=== PATIENT | female | born 1940 | race Caucasian/White ===

== ENCOUNTER 2019-12-14 12:36 | Outpatient (CLI) | payer MEDICARE, SELFPAY ==
--- NOTE | 2019-12-14 13:07 | ECHO_ITS ---
Patient Info Name: Lennie Salazar Age: 79 years : 1940 Gender: Female Ht: 62 in Wt: 160 lbs BSA: 1.81 m2 HR: 56 bpm BP: 182 / 96 mmHg Heart Rhythm: Sinus Rhythm Technical Quality: Good Exam Date: 12/14/2019 1:15 PM Exam Location: [facility] Pul[facility] Patient Status: Outpatient Admit Date: 12/14/2019 Staff Ordering Physician: Carter Noel PA-C Inventory Transcriber: Keenan Radford, ALLY, RT Attending Provider: Carter Noel PA-C Referring Physician: Bert VARGAS; Exam Type: CA echo doppler color flow Study Info Indications I49.8 - Other specified cardiac arrhythmias Complete two-dimensional, color flow and Doppler transthoracic echocardiogram is performed. Summary 1. Left ventricular systolic function are normal with no regional wall motion abnormalities with an estimated ejection fraction of 65-70%. There is mild concentric left ventricular hypertrophy present and grade 2 diastolic dysfunction. The global longitudinal strain is-18%, normal. 2. Right ventricular chamber dimension is mildly enlarged with normal systolic function. 3. Left atrial chamber dimension is mildly enlarged. 4. Right atrial chamber dimension is mildly enlarged. 5. There is mild mitral valve regurgitation. 6. There is trace tricuspid valve regurgitation. 7. Dilated inferior vena cava with >50% collapse upon inspiration consistent with elevated right atrial pressure, Empty. 8. Sinus bradycardia. Left Ventricle Left ventricular chamber dimension is normal. Left ventricular systolic function is normal, estimated at 65-70%. There is mildly increased left ventricular wall thickness. Left ventricular septal wall motion is normal. The left ventricular diastolic function is grade II diastolic dysfunction. Global longitudinal strain is normal at 18 %. Left ventricular systolic function are normal with no regional wall motion abnormalities with an estimated ejection fraction of 65-70%. There is mild concentric left ventricular hypertrophy present and grade 2 diastolic dysfunction. The global longitudinal strain is-18%, normal. Right Ventricle Right ventricular chamber dimension is mildly enlarged with normal systolic function. Right ventricular systolic function is normal. Left Atria Left atrial chamber dimension is mildly enlarged. Right Atria Right atrial chamber dimension is mildly enlarged. Aortic Valve The aortic valve is trileaflet. There is no aortic valve sclerosis. There is no aortic valve stenosis. There is no aortic valve regurgitation. Pulmonic Valve The pulmonic valve is normal. There is no pulmonic valve stenosis. There is no pulmonic regurgitation. Mitral Valve The mitral valve has normal leaflets. There is no mitral valve stenosis. There is mild mitral valve regurgitation. Tricuspid Valve The tricuspid valve leaflets are normal. There is no significant tricuspid valve stenosis. There is trace tricuspid valve regurgitation. No pulmonary hypertension, estimated pulmonary arterial systolic pressure is Empty. Pericardium/Pleural The pericardium appears normal. There is no pericardial effusion. Inferior Vena Cava Dilated inferior vena cava with >50% collapse upon inspiration consistent with elevated right atrial pressure, Empty. Aorta The aortic root size at the sinus of Valsalva is normal. The prox ascending aorta size is normal. Left Ventricular Outflow Tract Name
== END 2019-12-14 12:37 | disposition home or self-care (01) ==
PROVIDERS: PCP Family Medicine; Visit Provider Physician Assistant
DX: M79.89 Other specified soft tissue disorders (principal); I10 Essential (primary) hypertension; I34.0 Nonrheumatic mitral (valve) insufficiency; R00.1 Bradycardia, unspecified
CPT/HCPCS: 93306

== ENCOUNTER 2020-06-22 00:51 | Outpatient (CLI) | payer MEDICARE, SELFPAY ==
[2020-06-22 18:38] LABS: SARS-CoV-2 RNA PCR Negative
== END 2020-06-22 00:52 | disposition home or self-care (01) ==
LOC: ANHCOVIDDT 00:51
PROVIDERS: PCP Family Medicine; Visit Provider Internal Medicine Cardiovascular Disease
DX: Z01.812 Encounter for preprocedural laboratory examination (principal); Z20.822 Contact with and (suspected) exposure to COVID-19
CPT/HCPCS: C9803; U0003

== ENCOUNTER 2020-06-25 01:14 | Day surgery (SDC) | payer MEDICARE, SELFPAY ==
[2020-06-25] VITALS (9 sets, daily range): BP systolic 91–148; BP diastolic 57–97; PULSE 50–124; RESP 11–21; TEMP 36.8–37.3; O2SAT 93–97; BMI 29.9
--- NOTE | 2020-06-25 | ECG_ITS ---
Measurements Intervals [place] Rate: 56 P: 60 MO: 199 QRS: 1 QRSD: 106 T: 3 QT: 442 QTc: 429 Interpretive Statements SINUS BRADYCARDIA ATRIAL PREMATURE COMPLEX BORDERLINE T WAVE ABNORMALITY- INFERIOR LEADS BORDERLINE ECG Electronically Signed On 06-25-2020 10:39:12 [employer] by Jani Carter D.O.
--- NOTE | 2020-06-25 08:30 | ECG_ITS ---
Measurements Intervals [place] Rate: 133 P: [place]: 0 QRS: -2 QRSD: 104 T: 6 QT: 301 QTc: 449 Interpretive Statements ATRIAL FLUTTER/TACHYCARDIA WITH RAPID VENTRICULAR RESPONSE DELAYED PRECORDIAL R/S TRANSITION BORDERLINE T WAVE ABNORMALITY- INFERIOR LEADS ABNORMAL ECG Electronically Signed On 06-25-2020 9:17:27 [employer]OR[employer]IFTER by Jani Carter D.O.
[2020-06-25 09:46] LABS: Anion Gap 9 mmol/L (8-16); Blood Urea Nitrogen 32 mg/dL (7-17); Calcium 9.9 mg/dL (8.4-10.2); Carbon Dioxide 33 mmol/L (22-30); Chloride 97 mmol/L (98-107); Estimated CRCL calculation 29 ml/min; Estimated Glomerular Filt Rate 43; Glucose 129 mg/dL (65-105); Magnesium 1.7 mg/dL (1.6-2.3); Potassium 4.2 mmol/L (3.4-5.0); Sodium 139 mmol/L (137-145)
[2020-06-25] MEDS: MAGNESIUM SULF 2 GM/WATER 50ML 2 GM/50 ML BAG IVPB (10:11)
--- NOTE | 2020-06-25 10:17 | WPDMODSED ---
Moderate Sedation Note-Pt Data Patient Data Diagnosis: Atrial fibrillation Present Complaint: Atrial fibrillation Procedure to be performed/Plan: 1. Multiplanar transesophageal echocardiogram with color-flow pulse-wave Doppler 2. Moderate sedation 3. Electrical cardioversion 4. Agitated saline study Allergies Allergy/AdvReac Type Severity Reaction Status Date / Time Penicillins Allergy Mild HIVES Verified 04/13/20 09:49 Home Medications Medication Instructions Recorded Confirmed Type indapamide 2.5 mg tablet 2.5 mg PO DAILY #90 tablet 05/04/19 06/21/20 Rx magnesium 200 mg tablet 600 mg PO DAILY 08/24/19 06/21/20 History atenolol 50 mg tablet 50 mg PO BID #180 tablet 11/21/19 06/21/20 Rx pitavastatin calcium 4 mg tablet 4 mg PO DAILY #90 tablet 02/14/20 06/21/20 Rx icosapent ethyl 1 gram capsule 2 gm PO BID #120 cap 02/15/20 06/21/20 Rx diclofenac sodium 75 mg 75 mg PO BID #180 tablet 06/06/20 06/21/20 Rx tablet,delayed release aspirin [Aspirin Childrens] 81 mg PO DAILY 06/21/20 06/21/20 History cannabidiol 25 mg PO DAILY 06/21/20 06/21/20 History diphenhydramine-acetaminophen 1 tablet PO HS PRN 06/21/20 06/21/20 History [Tylenol PM Extra Strength] lisinopril 10 mg PO DAILY 06/21/20 06/21/20 History metformin 1,000 mg PO DAILY 06/21/20 06/21/20 History metformin 500 mg PO HS 06/21/20 06/21/20 History rqvydphfopie-arq-penr-FA-vit K 1 tablet PO DAILY 06/21/20 06/21/20 History [Adults Multivitamin] rivaroxaban [Xarelto] 20 mg PO DAILY 06/21/20 06/21/20 History Current Medications: Active Medications Sodium Chloride (Normal Saline Iv) 1,000 mls @ 30 mls/hr IV CONT .Q24H MEL Magnesium Sulfate (Magnesium Sulf 2 Gm/Water 50ml) 2 gm in 50 mls @ 50 mls/hr IVPB ONCE ONE Stop: 06/25/20 11:08 Last Admin: 06/25/20 10:11 Dose: 50 mls/hr Documented by: Sedation/Anesthesia: No previous sedation/anesthesia problems (including family history). [facility] Past Medical History Medical History History of polycystic ovaries Hx of nephrolithotomy with removal of calculi Surgical History Surgical History History of knee replacement Hx of appendectomy Hx of cholecystectomy Family History Family History Mother Diabetes mellitus Family history of mental disorder Depression Family history of dementia Grandparent Diabetes mellitus Acute myocardial infarction Sibling Patient's brother is in good health Father Family history of cardiovascular disease, Onset Age: 80 Cerebrovascular accident, Onset Age: 80 Social History Social History Smoking status: Former smoker Alcohol intake: never Gender identity (if verbalized by the patient): Female Spiritual care concerns: No Mod Sed Physical Exam Physical Exam Pre Procedural Exam: Normal: Appearance, Eyes, Ears, Nose, Neck, Throat, Airway, Lungs, Heart Size, Neuro Exam, Abdomen, Extremities and Skin and Variation: Heart Rate (Tachycardic) and Heart Rhythm (Irregular irregular) Hours since solid foods: 12 Hours since liquid intake: 12 Internal Medicine - PN: Obj Da Vital Signs Vital Signs: Vital Signs - 24 hr 06/25/20 09:23 Temperature 37.3 C Pulse Rate 124 H Respiratory Rate 21 H Blood Pressure 127/96 H Pulse Oximetry 97 Meds/Results Medications: Active Medications Generic Name Dose Route Start Last Admin Trade Name Enocq PRN Reason Stop Dose Admin Sodium Chloride 1,000 mls @ 30 mls/hr 06/25/20 07:50 Normal Saline Iv IV CONT .Q24H MEL Magnesium Sulfate 2 gm in 50 mls @ 50 mls/hr 06/25/20 10:09 06/25/20 10:11 Magnesium Sulf 2 Gm/Water 50ml IVPB 06/25/20 11:08 50 mls/hr ONCE ONE Administration Labs CBC & Chem 7: 06/25/20 09:17 06/25/20 09:17 Labs: Labor
--- NOTE | 2020-06-25 10:42 | P.PCNTEECA_ITS ---
JANINA with Cardioversion Date of procedure: 06/25/20 Procedure Type: 1. Multiplanar transesophageal echocardiography with color flow and pulse wave Doppler 2. Moderate sedation 3. Electrical cardioversion Diagnosis: Atrial fibrillation Indications: Atrial fibrillation Description of Procedure: After discussing the risks, benefits alternatives of the procedure the patient agreeable via verbal and written informed consent. Risks discussed included esophageal rupture perforation, bleeding, pain, infection, sore throat, skin irritation or burn from the pads, shocking into more problematic heart rhythm, stroke, . After consent was signed and time-out was taken the procedure started. 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 Procedure start time 10:22 a.m. Procedure stop time 10:30 a.m. A total of 3 mg of Versed and 50 mcg of fentanyl were given in divided dosages. Hurricaine spray to hypopharynx x2 for topical anesthetic Medications were administered and patient was monitored by Sasha Ruby RN Complications: None Blood loss: None Sedation: As above Findings: Normal left ventricular size and function with ejection fraction around 60-65%. Moderate left atrial enlargement. Mild right atrial enlargement. Normal right ventricular size and function. Tricuspid valve is normal without significant tricuspid regurgitation. Pulmonic valve is normal without significant pulmonic insufficiency. The aortic valve is mildly sclerotic, trileaflet with minimal aortic insufficiency. The mitral valve is normal in appearance with [id number]-ag-qwwnpssl mitral regurgitation. The left at rial appendage is well visualized. There is no thrombus or mass noted. Pulse- wave velocities are of around 50 centimeters/second. No pericardial effusion. Aortic root measured at 2.9 cm. Electric cardioversion: Successful caodaism of sinus rhythm following 150 joules of biphasic synchronized energy from atrial fibrillation Conclusion: 1. Normal left ventricular size and function 2. Biatrial enlargement 3. Rcex-gf-igabdfqn mitral regurgitation 4. No left atrial appendage thrombus 5. Successful caodaism of sinus rhythm using 150 joules of synchronized biphasic energy 6. Moderate sedation
--- NOTE | 2020-06-25 11:43 | SUR.PHASEII ---
1145 Discharge instructions reviewed with patient, questions answered and she verbalized understanding. IV d/c'd, cath intact, pressure applied, pt transported to [facility] via where her drove her home in a private vehicle.
== END 2020-06-25 11:45 | disposition home or self-care (01) ==
PROVIDERS: PCP Family Medicine; Visit Provider Internal Medicine Cardiovascular Disease
PROC: (CPT 93312; principal; 2020-06-25 10:00)
PROC: 5A2204Z Restoration of Cardiac Rhythm, Single (ICD-10-PCS; 2020-06-25 10:00)
DX: I48.91 Unspecified atrial fibrillation (principal); I34.0 Nonrheumatic mitral (valve) insufficiency; I10 Essential (primary) hypertension; E11.9 Type 2 diabetes mellitus without complications; E78.5 Hyperlipidemia, unspecified; Z87.891 Personal history of nicotine dependence; Z79.82 Long term (current) use of aspirin; Z79.84 Long term (current) use of oral hypoglycemic drugs; Z79.01 Long term (current) use of anticoagulants
CPT/HCPCS: 36415; 80048; 83735; 92960; 93005; 93312; 93320; 93325; J2250; J3010; J3475; J7040

== ENCOUNTER 2020-10-02 10:09 | Outpatient (CLI) | payer MEDICARE, SELFPAY ==
--- NOTE | ~2020-10-02 | MM_ITS ---
EXAMINATION: MM screening luma BI w skylar HISTORY: Screening TECHNIQUE: Craniocaudal and mediolateral oblique 3-D tomosynthesis images were obtained and synthetic 2-D images were generated. CAD analysis was submitted and interpreted. COMPARISON: Comparison to multiple prior studies sequentially, with oldest reviewed study dated 07/15. BREAST PARENCHYMAL COMPOSITION: There are scattered areas of fibroglandular density. FINDINGS: Stable benign-appearing bilateral breast calcifications. The right breast is stable. There is a developing focal asymmetry in the upper outer quadrant of the left breast. IMPRESSION: 1. Focal asymmetry upper outer quadrant of the left breast. 2. Additional spot compression and mediolateral views with possible follow-up breast ultrasound recom mended. BI-RADS Category 0: Incomplete: Needs additional imaging evaluation. Reviewed, dictated and finalized at location A. IMPRESSION: 1. Focal asymmetry upper outer quadrant of the left breast. 2. Additional spot compression and mediolateral views with possible follow-up b reast ultrasound recommended. BI-RADS Category 0: Incomplete: Needs additional imaging evaluation.
== END 2020-10-02 10:10 | disposition home or self-care (01) ==
LOC: ANHIMG 10:15
PROVIDERS: PCP Family Medicine; Visit Provider Obstetrics & Gynecology
DX: Z12.31 Encounter for screening mammogram for malignant neoplasm of breast (principal); R92.8 Other abnormal and inconclusive findings on diagnostic imaging of breast
CPT/HCPCS: 77063; 77067

== ENCOUNTER 2020-10-23 13:22 | Outpatient (CLI) | payer MEDICARE, SELFPAY ==
--- NOTE | ~2020-10-23 | MMUS_ITS ---
EXAMINATION: MM diagnostic mammo unilat LT, US breast LT limited HISTORY: Follow-up left breast asymmetry TECHNIQUE: Additional 3-D tomosynthesis images of the left breast were performed and synthetic 2-D im ages were generated. CAD analysis was submitted and interpreted. High resolution Limited left breast ultrasound was performed. COMPARISON: Comparison to multiple prior studies sequentially, with oldest reviewed study dated 07/15. BREAST PARENCHYMAL COMPOSITION: Breast composed of scattered areas of fibroglandular density. FINDINGS: MAMMOGRAPHIC FINDINGS: Left breast asymmetry is less apparent with spot compression and mediolateral views, compatible with superimposed fibroglandular tissue. There is benign calcifications of the left breast. ULTRASOUND: Limited left breast ultrasound: Normal heterogeneous echotexture without focal solid or cystic mass. IMPRESSION: 1. No evidence for malignancy in the left breast. 2. Routine yearly screening mammogram and regular clinical breast examination are recommended. BI-RADS Category 2: Benign finding(s). Reviewed, dictated and finalized at location A. IMPRESSION: 1. No evidence for malignancy in the left breast. 2. Routine yearly screening mammogram and regular clinical breast examination a re recommended. BI-RADS Category 2: Benign finding(s).
== END 2020-10-23 13:23 | disposition home or self-care (01) ==
PROVIDERS: PCP Family Medicine; Visit Provider Obstetrics & Gynecology
DX: R92.8 Other abnormal and inconclusive findings on diagnostic imaging of breast (principal)
CPT/HCPCS: 76642; 77065

== ENCOUNTER 2021-01-30 13:17 | Outpatient (CLI) | payer MEDICARE, SELFPAY ==
--- NOTE | ~2021-01-30 | CT_ITS ---
EXAMINATION: CT abdomen pelvis wo/w con DATE: 01/30/2021 14:31 INDICATION: Gross hematuria TECHNIQUE: Computed tomography (CT) of the abdomen and pelvis was performed without intravenous contr ast. CT of the abdomen and pelvis was then performed with a total of 130 mL Omnipaque 350 intravenous contrast using a double-bolus technique for simultaneous opacification of the renal parenchyma and r enal collecting system. The dose-length product (DLP) was 1718.84 mGy-cm. Automated exposure control and iterative reconstruction technique were employed. COMPARISON: None FINDINGS: There are groundglass opacities of the visualized lung bases. Cardiomegaly is noted. There is calcified coronary artery atherosclerosis. The gallbladder is surgically absent. Punctate calcific ations in an otherwise normal spleen likely represent healed granulomatous disease. The liver, pancre as, and left adrenal gland are normal. Calcifications in the right adrenal gland are consistent with prior infection or hemorrhage. Cysts of the kidneys measure up to 7 mm on the right. No suspicious re nal or urothelial lesion is identified. No stones are identified in the kidneys, ureters, or bladder. There is no hydronephrosis or hydroureter. There is calcified atherosclerosis of the aorta and many of the other arteries. No pathologically enlarged abdominal or pelvic lymph nodes are identified. The re is no free intraperitoneal gas or evidence of bowel obstruction. There is colonic diverticulosis. Minimal fat stranding is seen adjacent to the sigmoid colon. There is severe lumbar spondylosis. IMPRESSION: 1. No CT correlate for the patient's symptoms. 2. Diverticulosis with possible mild fat stranding near the sigmoid colon. Recommend clinical correla tion for left lower quadrant tenderness and if present, finding could reflect mild uncomplicated dive rticulitis. 3. Groundglass opacities of the visualized lung bases which could reflect atelectasis, pneumonia, or pulmonary edema. Reviewed, dictated and finalized at location B. IMPRESSION: 1. No CT correlate for the patient's symptoms. 2. Diverticulosis with possible mild fat stranding near the sigmoid colon. Edy mmend clinical correlation for left lower quadrant tenderness and if present, f inding could reflect mild uncomplicated diverticulitis. 3. Groundglass opacities of the visualized lung bases which could reflect atele ctasis, pneumonia, or pulmonary edema.
--- NOTE | ~2021-01-30 | XR_ITS ---
EXAMINATION: XR abdomen/kub 1V INDICATION: Gross hematuria TECHNIQUE: Supine views of the abdomen were obtained on 2 radiographs. COMPARISON: None FINDINGS: No urolithiasis is identified. The bowel gas pattern is normal. Cholecystectomy clips are n oted in the right upper quadrant. There is severe lumbar spondylosis. 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 IMPRESSION: 1. No radiographic correlate for the patient's symptoms. Reviewed, dictated and finalized at location B.
[2021-01-30 14:05] LABS: Estimated Glomerular Filt Rate 31
== END 2021-01-30 13:18 | disposition home or self-care (01) ==
LOC: ANHIMG 13:18
PROVIDERS: PCP Family Medicine; Visit Provider Nurse Practitioner Adult Health
DX: R31.0 Gross hematuria (principal); K57.90 Diverticulosis of intestine, part unspecified, without perforation or abscess without bleeding; R91.8 Other nonspecific abnormal finding of lung field
CPT/HCPCS: 74018; 74178; Q9967

== ENCOUNTER 2021-09-24 14:37 | Outpatient (CLI) | payer MEDICARE, SELFPAY ==
--- NOTE | ~2021-09-24 | MR_ITS ---
EXAMINATION: MR brain/brain stem wo con EXAM DATE: 09/24/2021 15:28 INDICATION: R42 - Dizziness and giddiness. TECHNIQUE: Magnetic resonance imaging (MRI) of the brain/brain stem obtained without contrast. Fred al T1, axial diffusion, gradient echo (T2*), T1, T2, FLAIR sequences obtained. There is no prior st udy for comparison. FINDINGS: There are no areas of restricted diffusion to suggest acute infarction. There is no acute hemorrhage seen on the T2*, a hemosiderin sensitive sequence. No intraparenchymal brain mass. The ve ntricles are normal in size. There are no extra-axial collections. Flow voids are seen in the cereb ral arteries on the T2-weighted sequences consistent with their expected patency. The orbits are unr emarkable. Soft tissue is unremarkable. IMPRESSION: Unremarkable brain MRI examination. Reviewed, dictated and finalized at location A.
== END 2021-09-24 14:38 | disposition home or self-care (01) ==
LOC: ANHIMG 14:43
PROVIDERS: PCP Family Medicine; Visit Provider Family Medicine
DX: R42 Dizziness and giddiness (principal)
CPT/HCPCS: 70551

== ENCOUNTER 2021-12-11 10:34 | Outpatient (CLI) | payer MEDICARE, SELFPAY ==
--- NOTE | ~2021-12-11 | MM_ITS ---
EXAMINATION: MM screening luma BI w skylar HISTORY: Screening mammogram TECHNIQUE: Craniocaudal and mediolateral oblique 3-D tomosynthesis images were obtained and synthetic 2-D images were generated. CAD analysis was submitted and interpreted. COMPARISON: 10/2020 diagnostic left mammogram and limited left breast ultrasound 10/02/2020, bilateral screening mammogram examinations BREAST PARENCHYMAL COMPOSITION: There are scattered areas of fibroglandular density. FINDINGS: Numerous benign secretory type calcifications. There is no evidence of suspicious mass, jaquan cification, or architectural distortion to suggest malignancy in either breast. There has been no candis picious interval change. IMPRESSION: 1. No mammographic evidence of malignancy. 2. Recommend routine screening mammography in one year. BI-RADS Category 2: Benign Reviewed, dictated and finalized at location A.
== END 2021-12-11 10:35 | disposition home or self-care (01) ==
PROVIDERS: PCP Family Medicine; Visit Provider Obstetrics & Gynecology
DX: Z12.31 Encounter for screening mammogram for malignant neoplasm of breast (principal)
CPT/HCPCS: 77063; 77067

== ENCOUNTER → 2022-09-18 09:42 | Outpatient (CLI) | payer MEDICARE, SELFPAY ==
--- NOTE | ~2022-09-18 | CT_ITS ---
EXAMINATION: CT sinus wo con DATE: 09/18/2022 12:18 INDICATION: Bilateral continuous maxillary sinus pressure TECHNIQUE: Computed tomography (CT) of the paranasal sinuses was performed without contrast. Iterativ e reconstruction technique was employed. Exam dose: 384.14 mGy-cm total exam DLP. COMPARISON: None FINDINGS: There is rightward bowing of the upper nasal septum. The nasal turbinates are moderately pr ominent but symmetric in size. The ostiomeatal units are patent. There is a small mucus retention cyst in the anterolateral aspect of the right sphenoid sinus. The paranasal sinuses and mastoid air cells are otherwise normally developed and aerated. The ostiomeatal units are patent bilaterally. IMPRESSION: Small mucus retention cyst of right sphenoid sinus; otherwise negative paranasal sinuses , ostiomeatal units and mastoid air cells Reviewed, dictated and finalized at Location A. Reviewed, dictated and finalized at location L. IMPRESSION: Small mucus retention cyst of right sphenoid sinus; otherwise nega tive paranasal sinuses, ostiomeatal units and mastoid air cells
== END ==
PROVIDERS: PCP Family Medicine; Visit Provider Otolaryngology
DX: J32.0 Chronic maxillary sinusitis (principal)
CPT/HCPCS: 70486

== ENCOUNTER 2022-10-15 14:45 | Outpatient (CLI) | payer MEDICARE, SELFPAY ==
--- NOTE | ~2022-10-15 | XR_ITS ---
Cervical Spine: AP, lateral, open-mouth views Clinical History: Pain Findings: The normal lordotic curve is maintained. The vertebral bodies and posterior elements appea r intact. There are prominent anterior marginal osteophytes extending from C4 through C7. There is fa cet arthropathy, most prominent at C3-C4 bilaterally. The intervertebral disc spaces are well maintai stephane. Pre-vertebral soft tissues are unremarkable. Impression: Mild degenerative changes, as above. No fracture or subluxation. Reviewed, dictated and finalized at location M. Impression: Mild degenerative changes, as above. No fracture or subluxation.
== END 2022-10-15 14:46 | disposition home or self-care (01) ==
PROVIDERS: PCP Family Medicine; Visit Provider Family Medicine
DX: M47.812 Spondylosis without myelopathy or radiculopathy, cervical region (principal)
CPT/HCPCS: 72050

== ENCOUNTER 2022-11-03 10:44 | Emergency (ER) | payer MEDICARE, SELFPAY ==
--- NOTE | ~2022-11-03 | XR_ITS ---
XR hip LT 2V w AP pelvis 11/03/2022 11:25 Indication: Left hip pain for 3 weeks Procedure: AP pelvis and 2 views left hip Comparison: No prior studies for comparison. Findings: Pelvic rings are intact. There is mild osteoarthritis of the hips. There is a lower lumbar spondylosis. No acute fracture or traumatic malalignment. Impression: 1: No acute bone or joint abnormality. Reviewed, dictated and finalized at location B. Impression: 1: No acute bone or joint abnormality.
[2022-11-03 10:56] VITALS: BP 154/99; PULSE 60; RESP 16; TEMP 36.4; O2SAT 99
--- NOTE | 2022-11-03 11:20 | PC.NURSE ---
pt c/o l hip pain. states she has hx of dislocation and since the age of 14 she has had occasional dislocations but was able to put in back in. states over the past couple of days she has had problems with her positional vertigo and she twisted hip while trying to get up and has had pain since. states saw the chiropractor and pmd and they told her to come to er for eval and xray to make sure it isn't dislocated. no deformity noted.
--- NOTE | 2022-11-03 11:45 | ED.LOWEXIN ---
HPI - Extremity Injury (Lower) General Chief Complaint: Extremity Injury, Lower Stated Complaint: sent by PCP for xray of L hip Time Seen by Provider: 11/03/22 11:01 History of Present Illness HPI Narrative: 82-year-old female here for evaluation of acute on chronic left hip pain. Patient states her hip has been hurting her since she was 14 years old when she was in an accident falling off of a horse. She has since had intermittent problems in the hip and has been seeing a chiropractor with transient relief of her pain. Patient states that she saw her chiropractor 3 days ago did have transient relief but her pain returned today. She has been able to walk but just states it is painful. Has been taking Tylenol without relief of her symptoms. No fevers, chills, nausea, vomiting. Related Data Home Medications Medication Instructions Recorded Confirmed magnesium 200 mg tablet 600 mg PO DAILY 08/24/19 11/03/22 cannabidiol 100 mg/mL oral solution 25 mg PO DAILY 06/21/20 11/03/22 diphenhydramine 25 1 tablet PO HS PRN Insomnia 06/21/20 11/03/22 mg-acetaminophen 500 mg tablet (Tylenol PM Extra Strength) multivit with minerals-iron 18 1 tablet PO DAILY 06/21/20 11/03/22 mg-folic ac 400 mcg-vit K 25 mcg tablet (Adults Multivitamin) rivaroxaban 20 mg tablet (Xarelto) 15 mg PO DAILY 03/04/21 11/03/22 Allergies Allergy/AdvReac Type Severity Reaction Status Date / Time Penicillins Allergy Mild HIVES Verified 11/03/22 11:00 Review of Systems Review of Systems: Gen: Denies fevers or chills Eyes: Denies eye pain or visual change ENT: Denies congestion Respiratory: Denies shortness of breath or cough CV: Denies chest pain or palpitations GI: Denies abdominal pain nausea, emesis or diarrhea denies burning, urgency, frequency or hematuria Musculoskeletal: Reports left hip pain Neuro: Denies numbness, tingling, weakness or focal weakness Skin: Denies rash Except as documented, all other systems reviewed and negative PMFSH Past Medical History Medical History (Updated 11/03/22 @ 13:11 by Isis Alejo PA-C) History of polycystic ovaries Hx of nephrolithotomy with removal of calculi Surgical History Surgical History History of knee replacement Hx of appendectomy Hx of cholecystectomy Family History Family History Mother Diabetes mellitus Family history of mental disorder Depression Family history of dementia Grandparent Diabetes mellitus Acute myocardial infarction Sibling Patient's brother is in good health Father Family history of cardiovascular disease, Onset Age: 80 Cerebrovascular accident, Onset Age: 80 Social History Social History Smoking status: Never smoker Alcohol intake: never Lack of Transportation: No Lack of Food: Never True Current Housing: I Have Housing Concerned About Future Housing: No Difficulty Paying Gas/Electric Bills: No Difficulty Paying for Meds: No Currently Unemployed: No Education: High School Diploma/GED Difficulty w/ Childcare or Family Care: No Gender identity (if verbalized by the patient): Female Spiritual care concerns: No Exam Narrative: APPEARANCE: No acute distress, nontoxic, resting in bed EYES: EOMI HEENT: Normocephalic, atraumatic, OMM RESPIRATORY: No respiratory distress Clear to auscultation bilaterally with no rhonchi wheezing or rales. CARDIOVASCULAR: 2+ DP and PT pulses bilaterally. Regular rate and rhythm without murmurs rubs or gallops. ABDOMINAL: Soft, nontender, nondistended, no rebound or guarding MUSCULOSKELETAL: There is tenderness to palpation along the left hip. She has pain with flexion of the hip, external and internal rotation. There is also some pain in the hip with flexion at the knee. There is no warmth or red
[2022-11-03] MEDS: LIDOCAINE 5% PATCH 1 PATCH TRANSDERM (12:08)
[2022-11-03] MEDS: MELOXICAM 7.5 MG TABLET PO (12:32)
== END 2022-11-03 13:26 | disposition home or self-care (01) ==
PROVIDERS: Emergency Provider Physician Assistant; PCP Family Medicine
DX: M16.12 Unilateral primary osteoarthritis, left hip (principal)
CPT/HCPCS: 73502; 99283; A9270

== ENCOUNTER 2023-05-21 02:51 | Day surgery (SDC) | payer MEDICARE, SELFPAY ==
[2023-05-20 15:32] VITALS: BMI 32.9
[2023-05-21] VITALS (9 sets, daily range): BP systolic 113–156; BP diastolic 49–108; PULSE 61–137; RESP 12–24; O2SAT 96–100; BMI 35.2
--- NOTE | 2023-05-21 09:00 | ECG_ITS ---
Measurements Intervals [place] Rate: 61 P: 53 AR: 196 QRS: 7 QRSD: 94 T: 2 QT: 428 QTc: 433 Interpretive Statements SINUS RHYTHM SUPRAVENTRICULAR TRIGEMINY BORDERLINE T WAVE ABNORMALITY- INFERIOR LEADS ABNORMAL ECG COMPARED TO ECG 05/21/2023 09:13:17 SINUS RHYTHM NOW PRESENT Electronically Signed On 05-21-2023 11:25:20 DEDICATED DRIVER by Jani Carter D.O.
[2023-05-21 09:40] LABS: Anion Gap 11 mmol/L (8-16); Blood Urea Nitrogen 45 mg/dL (7-17); Calcium 9.1 mg/dL (8.4-10.2); Carbon Dioxide 23 mmol/L (22-30); Chloride 103 mmol/L (98-107); Estimated CRCL calculation 22 ml/min; Estimated Glomerular Filt Rate 31; Glucose 138 mg/dL (65-110); Magnesium 2.1 mg/dL (1.6-2.3); Potassium 4.7 mmol/L (3.4-5.0); Sodium 137 mmol/L (137-145)
--- NOTE | 2023-05-21 10:45 | ECG_ITS ---
Measurements Intervals [place] Rate: 125 P: UT: 0 QRS: 1 QRSD: 90 T: 7 QT: 315 QTc: 455 Interpretive Statements ATRIAL FIBRILLATION WITH RAPID VENTRICULAR RESPONSE DELAYED PRECORDIAL R/S TRANSITION BORDERLINE T WAVE ABNORMALITY- INFERIOR LEADS BASELINE ARTIFACT- I, II, III, AVL, AVF ABNORMAL ECG COMPARED TO ECG 06/25/2020 10:37:54 ATRIAL FIBRILLATION NOW PRESENT Electronically Signed On 05-21-2023 9:16:28 PALEOLOGIST by Jani Carter D.O.
--- NOTE | 2023-05-21 10:45 | WPDHPUPDATE1 ---
History and Physical Update Update Date/Time: 05/21/23 10:45 History and Physical has been reviewed, including an updated exam of the patient. There are NO changes in the patient's condition. Risks, benefits, and alternatives have been discussed and questions answered. Patient agrees to proceed with procedure.
--- NOTE | 2023-05-21 11:05 | WPDMODSED ---
Moderate Sedation Note-Pt Data Patient Data Diagnosis: Atrial fibrillation with rapid ventricular response Present Complaint: Shortness of breath History and physical update: Patient is a very pleasant 83-year-old female with past medical history significant for paroxysmal atrial fibrillation, hypertension, type 2 diabetes mellitus, hyperlipidemia who was in her usual state of health when approximately 1-2 weeks ago she developed worsening shortness of breath with tachycardia and recurrence of atrial fibrillation with RVR. She was maintained on atenolol 50 mg twice daily and she has been anticoagulated with Xarelto 15 mg at bedtime without any interruption for at least 4 weeks. She is subsequently referred for elective cardioversion without the need for JANINA guidance. Patient is followed by Dr. Lagunas who recommended cardioversion to restore sinus rhythm. Impression: Paroxysmal atrial fibrillation with sustained recurrence with RVR Hypertension Diabetes mellitus Hyperlipidemia Recommendations: Elective cardioversion to restore sinus rhythm. Procedure to be performed/Plan: Elective electrical cardioversion Allergies Allergy/AdvReac Type Severity Reaction Status Date / Time Penicillins Allergy Mild HIVES Verified 05/20/23 15:12 Home Medications Medication Instructions Recorded Confirmed Type cannabidiol 100 mg/mL oral solution 25 mg PO DAILY 06/21/20 05/20/23 History multivit with minerals-iron 18 1 tablet PO DAILY 06/21/20 05/20/23 History mg-folic ac 400 mcg-vit K 25 mcg tablet (Adults Multivitamin) pitavastatin calcium 4 mg tablet 4 mg PO DAILY #90 tabs 04/29/22 05/21/23 Rx metformin 500 mg tablet 500 mg PO BID #180 tabs 12/25/22 05/21/23 Rx atenolol 50 mg tablet 50 mg PO BID 05/20/23 05/21/23 History cholecalciferol (vitamin D3) 50 50 mcg PO DAILY 05/20/23 05/20/23 History mcg (2,000 unit) capsule cyanocobalamin (vitamin B-12) 5,000 mcg sublingual DAILY 05/20/23 05/20/23 History 5,000 mcg sublingual tablet diclofenac sodium 75 mg 75 mg PO BID 05/20/23 05/21/23 History tablet,delayed release diphenhydramine 25 2 tablet PO HS PRN Sleep 05/20/23 05/20/23 History mg-acetaminophen 500 mg tablet (Acetaminophen PM) famotidine 10 mg tablet 10 mg PO BID 05/20/23 05/20/23 History icosapent ethyl 1 gram capsule 2 g PO BID 05/20/23 05/21/23 History (Vascepa) indapamide 2.5 mg tablet 2.5 mg PO DAILY 05/20/23 05/21/23 History lisinopril 40 mg tablet 10 mg PO DAILY 05/20/23 05/21/23 History magnesium oxide 400 mg PO DAILY PRN Constipation 05/20/23 05/20/23 History rivaroxaban 15 mg tablet (Xarelto) 15 mg PO DAILY 05/20/23 05/20/23 History Current Medications: Active Medications Sodium Chloride (Normal Saline Iv) 1,000 mls @ 30 mls/hr IV CONT .Q24H MEL Sedation/Anesthesia: No previous sedation/anesthesia problems (including family history). [facility] Past Medical History Medical History Atrial fibrillation with RVR CARDIOVERSION june, Bradycardia Essential (primary) hypertension History of polycystic ovaries Hx of nephrolithotomy with removal of calculi Type 2 diabetes mellitus without complications Surgical History Surgical History History of knee replacement Hx of appendectomy Hx of cholecystectomy Family History Family History Mother Diabetes mellitus Family history of mental disorder Depression Family history of dementia Grandparent Diabetes mellitus Acute myocardial infarction Sibling Patient's brother is in good health Father Family history of cardiovascular disease, Onset Age: 80 Cerebrovascular accident, Onset Age: 80 Social History Social History Smoking packs per day: 0 Smoking cigarettes per day: 0.0 Y
--- NOTE | 2023-05-21 11:10 | P.PCNCVR_ITS ---
Cardioversion Cardioversion Date of procedure: 05/21/23 Procedure: Elective electrical cardioversion Pre-op diagnosis: Atrial fibrillation with rapid ventricular response Post-op diagnosis: Same Indications: Symptomatic atrial fibrillation with rapid ventricular response Description of procedure: Brief history present illness: Patient is a pleasant 83 year female followed by Dr. Lagunas with a past medical history significant paroxysmal atrial fibrillation, hypertension, diabetes mellitus, hyperlipidemia with recurrence of AFib highly symptomatic with progressive fatigue and shortness of breath referred for elective electrical cardioversion in attempt to restore sinus rhythm. She is adamant she has not missed a single dose of his Xarelto and has been maintained on systemic anticoagulation for greater than 4 weeks without interruption. Procedure in detail: After verbal and written informed consent was obtained the patient risks, benefits, and alternatives explained in detail the patient agreed to proceed with the plan of care as outlined above. Patient was evaluated at bedside in the [facility] procedure room. On examination, neck was supple with normal range of motion, no restrictions to opening of the oral cavity, jaw angle and posterior hypopharynx was clear. Lungs were clear to auscultation. Patient was placed in appropriate 30 to 45 degree angle in a supine position. Patient was monitored throughout the study with telemetry, oxygen saturation, end-tidal CO2 monitoring, blood pressure, heart rate, and respirations. Anterior and posterior defibrillator pads placed in the appropriate positions. After confirmation of adequate sedation electrical cardioversion was carried out without complication. Patient tolerated the procedure well without difficulty. Sedation: Moderate Sedation/Anesthesia administration: Patient denied previous intolerance or complications with anesthesia/sedation. Please see sedation note for documentation of the pre-procedure physical examination. A total of 2mg intravenous Versed and a total of 75mcg intravenous Fentanyl in multiple divided doses was utilized for moderate sedation. Sedation start time was 1052 and end time was 1104 for a total of 12 minutes [id number] intra-procedure time. Sedation was administered by a qualified observer Hammad Adrian RN under my supervision with intra-procedure [id number] observation and management throughout the entirety of the procedure. There were no other issues or complications and patient tolerated the procedure well and sedation protocol well and I was present for the entirety. Findings: Elective electrical cardioversion: After confirmation of adequate sedation and persistence of atrial fibrillation, 200 joules synched biphasic energy x1 was delivered with immediate restorationism of sinus rhythm. Twelve lead EKG was obtained postprocedure confirming sinus rhythm. Complications: None Conclusion: Successful restorationism of sinus rhythm status post 200 joules synched biphasic energy x1.
== END 2023-05-21 12:27 | disposition home or self-care (01) ==
PROVIDERS: PCP Family Medicine; Visit Provider Internal Medicine Cardiovascular Disease
PROC: 5A2204Z Restoration of Cardiac Rhythm, Single (ICD-10-PCS; principal; 2023-05-21 10:30)
DX: I48.91 Unspecified atrial fibrillation (principal); E78.5 Hyperlipidemia, unspecified; Z79.01 Long term (current) use of anticoagulants
CPT/HCPCS: 36415; 80048; 83735; 92960; J2250; J3010; J7030

== ENCOUNTER 2023-11-12 02:47 | Day surgery (SDC) | payer MEDICARE, SELFPAY ==
[2023-11-11 13:49] VITALS: BMI 34.0
--- NOTE | 2023-11-12 08:59 | ECG_ITS ---
SEE SCANNED COPY FOR CONFIRMED REPORT MTDD
[2023-11-12 09:03] VITALS: BP 138/89; PULSE 103; RESP 14; TEMP 37.2; O2SAT 99
[2023-11-12 09:38] LABS: Anion Gap 12 mmol/L (4-12); Blood Urea Nitrogen 28 mg/dL (7-17); Calcium 8.9 mg/dL (8.4-10.2); Carbon Dioxide 23 mmol/L (22-30); Chloride 103 mmol/L (98-107); Estimated CRCL calculation 23 ml/min; Estimated Glomerular Filt Rate 33; Glucose 114 mg/dL (65-110); Magnesium 1.9 mg/dL (1.6-2.3); Potassium 4.5 mmol/L (3.4-5.0); Sodium 138 mmol/L (137-145)
[2023-11-12 10:24] VITALS: BP 137/95; PULSE 104; RESP 18; O2SAT 100
--- NOTE | 2023-11-12 10:29 | WPDHPUPDATE1 ---
History and Physical Update Update Date/Time: 11/12/23 10:29 History and Physical has been reviewed, including an updated exam of the patient. There are NO changes in the patient's condition. Risks, benefits, and alternatives have been discussed and questions answered. Patient agrees to proceed with procedure.
--- NOTE | 2023-11-12 10:29 | WPDMODSED ---
Moderate Sedation Note-Pt Data Patient Data Diagnosis: Atrial fibrillation Present Complaint: Atrial fibrillation Procedure to be performed/Plan: Synchronized electrical cardioversion Allergies Allergy/AdvReac Type Severity Reaction Status Date / Time Penicillins Allergy Mild HIVES Verified 09/17/23 09:10 Home Medications Medication Instructions Recorded Confirmed Type cannabidiol 100 mg/mL oral solution 25 mg PO DAILY 06/21/20 11/11/23 History multivit with minerals-iron 18 1 tablet PO DAILY 06/21/20 09/17/23 History mg-folic ac 400 mcg-vit K 25 mcg tablet (Adults Multivitamin) cholecalciferol (vitamin D3) 50 50 mcg PO DAILY 05/20/23 11/11/23 History mcg (2,000 unit) capsule cyanocobalamin (vitamin B-12) 5,000 mcg sublingual DAILY 05/20/23 11/11/23 History 5,000 mcg sublingual tablet diphenhydramine 25 2 tablet PO HS PRN Sleep 05/20/23 11/11/23 History mg-acetaminophen 500 mg tablet (Acetaminophen PM) famotidine 10 mg tablet 10 mg PO HS 05/20/23 11/11/23 History magnesium oxide 400 mg PO DAILY PRN Constipation 05/20/23 11/11/23 History rivaroxaban 15 mg tablet (Xarelto) 15 mg PO DAILY 05/20/23 11/11/23 History atenolol 50 mg tablet 50 mg PO DAILY #30 tabs 05/21/23 11/11/23 Rx pitavastatin calcium 4 mg tablet 4 mg PO DAILY #90 tabs 06/18/23 11/11/23 Rx icosapent ethyl 1 gram capsule 2 g PO BID #90 caps 07/13/23 11/11/23 Rx (Vascepa) indapamide 2.5 mg tablet 2.5 mg PO DAILY #90 tabs 08/25/23 11/11/23 Rx lisinopril 40 mg tablet 40 mg PO DAILY #90 tabs 09/21/23 11/11/23 Rx metformin 500 mg tablet See Rx Instructions .Route 09/22/23 11/11/23 Rx .COMPLEX #180 tabs amiodarone 200 mg tablet 200 mg PO BID 11/11/23 11/11/23 History Current Medications: Active Medications Sodium Chloride (Normal Saline Iv) 1,000 mls @ 30 mls/hr IV CONT .Q24H MEL Sedation/Anesthesia: No previous sedation/anesthesia problems (including family history). [facility] Past Medical History Medical History Atrial fibrillation with RVR CARDIOVERSION june, Bradycardia Essential (primary) hypertension History of polycystic ovaries Hx of nephrolithotomy with removal of calculi Type 2 diabetes mellitus without complications Surgical History Surgical History History of knee replacement Hx of appendectomy Hx of cholecystectomy Family History Family History Mother Diabetes mellitus Family history of mental disorder Depression Family history of dementia Grandparent Diabetes mellitus Acute myocardial infarction Sibling Patient's brother is in good health Father Family history of cardiovascular disease, Onset Age: 80 Cerebrovascular accident, Onset Age: 80 Social History Social History Smoking packs per day: 0 Smoking cigarettes per day: 0.0 Years smoked: 0 Smoking pack-years: 0.00 Smoking status: Former smoker Second hand tobacco smoke exposure: Yes Alcohol intake: never Substance use: never Lack of Transportation: No Lack of Food: Never True Current Housing: I Have Housing Concerned About Future Housing: No Difficulty Paying Gas/Electric Bills: No Difficulty Paying for Meds: No Currently Unemployed: No Education: High School Diploma/GED Difficulty w/ Childcare or Family Care: No Living arrangements: with family Additional living arrangements comments: , [place] Gender identity (if verbalized by the patient): Female Spiritual care concerns: No Mod Sed Physical Exam Physical Exam Pre Procedural Exam: Normal: Appearance, Lungs, Neuro Exam, Abdomen, Extremities and Skin and Variation: Heart Rate (Atrial fibrillation ) and Heart Rhythm (Atrial fibrillation) Hours since solid foods: 12 Hours since liquid intake: 8 Mallampati Cl
[2023-11-12 10:30] VITALS: BP 149/78; PULSE 52; RESP 12; O2SAT 99
--- NOTE | 2023-11-12 10:30 | ECG_ITS ---
SEE SCANNED COPY FOR CONFIRMED REPORT MTDD
--- NOTE | 2023-11-12 10:31 | WPDCARDVER ---
Cardioversion Cardioversion Date of procedure: 11/12/23 Procedure: Synchronized electrical cardioversion Pre-op diagnosis: Atrial fibrillation Post-op diagnosis: Other (Sinus rhythm) Indications: Atrial fibrillation Description of procedure: Written informed consent obtained. Defibrillator pads placed in an AP position. Patient's hemodynamics and respiratory status were monitored throughout the procedure. Time out performed by DEANNA Schilling. Total of Propofol 40mg IV was administered by me. Once patient was adequately sedated, synchronized electrical cardioversion was performed with 1 shock at 250 joules, which successfully restored sinus rhythm. No periprocedural complications. Sedation: Total of Propofol 40mg IV was administered by me. Findings: Successful cardioversion to sinus rhythm with 1 shock at 250 joules. Conclusion: Successful cardioversion to sinus rhythm with 1 shock at 250 joules.
[2023-11-12 10:45] VITALS: BP 136/78; PULSE 56; RESP 17; O2SAT 100
[2023-11-12 10:59] VITALS: BP 137/68; PULSE 55; RESP 16; O2SAT 100
[2023-11-12 11:23] VITALS: BP 160/67; PULSE 59; RESP 17; O2SAT 99
== END 2023-11-12 11:30 | disposition home or self-care (01) ==
PROVIDERS: PCP Family Medicine; Visit Provider Internal Medicine
PROC: 5A2204Z Restoration of Cardiac Rhythm, Single (ICD-10-PCS; principal; 2023-11-12 10:00)
DX: I48.91 Unspecified atrial fibrillation (principal); I10 Essential (primary) hypertension; E11.9 Type 2 diabetes mellitus without complications; Z79.01 Long term (current) use of anticoagulants; Z79.84 Long term (current) use of oral hypoglycemic drugs
CPT/HCPCS: 36415; 80048; 83735; 92960; J2704; J7030

== ENCOUNTER 2024-01-14 09:27 | Outpatient (CLI) | payer MEDICARE, SELFPAY ==
--- NOTE | ~2024-01-14 | XR_ITS ---
XR chest 2V 01/14/2024 09:45 Indication: Patient on amiodarone therapy Procedure: 2 view chest Comparison: 11/20/2017 Findings: Left basilar atelectasis. No focal pneumonia, edema, pleural effusion or pneumothorax. Hear t size normal. No acute osseous abnormality. Impression: 1: Left basilar atelectasis. Reviewed, dictated and finalized at location B. Impression: 1: Left basilar atelectasis.
== END 2024-01-14 09:28 | disposition home or self-care (01) ==
LOC: ANHIMG 09:31
PROVIDERS: PCP Family Medicine; Visit Provider Internal Medicine Cardiovascular Disease
DX: Z79.899 Other long term (current) drug therapy (principal); J98.11 Atelectasis
CPT/HCPCS: 71046

== ENCOUNTER 2024-01-20 07:58 | Outpatient (CLI) | payer MEDICARE, SELFPAY ==
--- NOTE | 2024-01-20 12:10 | WPDPFTINT ---
PFT Procedure Performed PFT Procedure Performed Plethysmography (Lung Vol) Diffusing Cap (DLCO) Flow Vol Loop Spirometry w/o Bronchodil PFT Interpretation This is a pulmonary function test with spirometry, plethysmography and diffusing capacity. The test was performed and results interpreted in accordance with the 2019 and 2005 ATS/ERS Task Force guidelines respectively using the Global Lung Function Initiative-2012 reference equations. Patient demonstrated good effort and cooperation. Reproducibility criteria were met. The quality of the spirometry maneuver was Grade A. Findings: Spirometry: The contour the inspiratory and expiratory flow tracing are normal. The FVC is 2.53 L, 122% predicted. The FEV1 is 1.90 L, 121% predicted. The FEV1: FVC ratio 75%. Plethysmography: The total lung capacity is 5.07 L, 114% predicted. The functional residual capacity is 3.35 L, 131% predicted. The residual volume is 2.53 L, 111% predicted. Diffusing capacity: The diffusing capacity unadjusted for hemoglobin and carboxyhemoglobin is 10.3, 60% predicted. The diffusing capacity adjusted for alveolar volume is 2.64, 62% predicted. Impression: The spirometry is normal without evidence of an obstructive abnormality. The lung volumes are normal. The diffusing capacity unadjusted for hemoglobin and carboxyhemoglobin is moderately decreased and remains mildly decreased when adjusted for alveolar volume. There are no prior studies for comparison
== END 2024-01-20 07:59 | disposition home or self-care (01) ==
PROVIDERS: PCP Family Medicine; Visit Provider Internal Medicine Cardiovascular Disease
DX: Z79.899 Other long term (current) drug therapy (principal)
CPT/HCPCS: 94375; 94726; 94729

== ENCOUNTER 2024-02-05 13:14 | Emergency (ER) | payer MEDICARE, SELFPAY ==
--- NOTE | ~2024-02-05 | XR_ITS ---
EXAMINATION: XR chest 1V portable DATE: 02/05/2024 14:45 INDICATION: Palpitations. TECHNIQUE: A single frontal view of the chest was obtained. COMPARISON: Chest 2 views 01/14/2024 FINDINGS: The lung volumes are small. There is mild atelectasis in the lower lung zones. No pleural e ffusion or pneumothorax. The heart size is normal. Surgical clips in the right upper quadrant are lik solange from cholecystectomy. IMPRESSION: 1. Small lung volumes with mild atelectasis in the lower lung zones. Reviewed, dictated and finalized at location A.
--- NOTE | 2024-02-05 13:25 | ECG_ITS ---
Test Date: 2024-02-05 13:31:15 Measurements Intervals [place] Rate: 151 P: 0 LA: 0 QRS: -28 QRSD: 90 T: 66 QT: 281 QTc: 447 Interpretive Statements ATRIAL FLUTTER/TACHYCARDIA WITH RAPID VENTRICULAR RESPONSE BORDERLINE LEFT AXIS DEVIATION [QRS AXIS < -20] NONSPECIFIC ST ABNORMALITY ABNORMAL ECG No previous ECG available for comparison Electronically Signed On 02-05-2024 15:15:19 CDT by Maged Bañuelos M.D.
[2024-02-05 13:30] VITALS: BP 93/66; PULSE 155; RESP 20; TEMP 36.3; O2SAT 99
--- NOTE | 2024-02-05 13:47 | ED.ARRPALP ---
HPI - Arrhythmia/Palpitations General Chief Complaint: Arrhythmia/Palpitations Stated Complaint: palpitations Time Seen by Provider: 02/05/24 13:37 History of Present Illness HPI narrative: 83-year-old female presenting to the emergency department for evaluation for rapid heart rate. Patient does have history of atrial fibrillation with rapid ventricular response. Patient follows up with Dr. Lagunas, patient was found to have decreasing lung volume on her chest x-ray so she was told to stop taking her amiodarone. Patient stopped her amiodarone on Thursday and had onset of rapid heart rate today. Related Data Home Medications Medication Instructions Recorded Confirmed cannabidiol 100 mg/mL oral solution 25 mg PO DAILY 06/21/20 01/21/24 multivit with minerals-iron 18 1 tablet PO DAILY 06/21/20 01/21/24 mg-folic ac 400 mcg-vit K 25 mcg tablet (Adults Multivitamin) cholecalciferol (vitamin D3) 50 50 mcg PO DAILY 05/20/23 01/21/24 mcg (2,000 unit) capsule cyanocobalamin (vitamin B-12) 5,000 mcg sublingual DAILY 05/20/23 01/21/24 5,000 mcg sublingual tablet diphenhydramine 25 2 tablet PO HS PRN Sleep 05/20/23 01/21/24 mg-acetaminophen 500 mg tablet (Acetaminophen PM) famotidine 10 mg tablet 10 mg PO HS 05/20/23 01/21/24 magnesium oxide 400 mg PO DAILY PRN Constipation 05/20/23 01/21/24 rivaroxaban 15 mg tablet (Xarelto) 15 mg PO DAILY 05/20/23 01/21/24 amiodarone 200 mg tablet 200 mg PO BID 11/11/23 01/21/24 lisinopril 40 mg tablet 10 mg PO DAILY 01/21/24 01/21/24 Allergies Allergy/AdvReac Type Severity Reaction Status Date / Time Penicillins Allergy Mild HIVES Verified 02/05/24 14:04 Review of Systems Review of Systems: All systems reviewed & are unremarkable except as noted in HPI and below PMFSH Past Medical History Medical History Atrial fibrillation with RVR CARDIOVERSION june, Bradycardia Essential (primary) hypertension History of polycystic ovaries Hx of nephrolithotomy with removal of calculi Type 2 diabetes mellitus without complications Surgical History Surgical History History of knee replacement Hx of appendectomy Hx of cholecystectomy Family History Family History Mother Diabetes mellitus Family history of mental disorder Depression Family history of dementia Grandparent Diabetes mellitus Acute myocardial infarction Sibling Patient's brother is in good health Father Family history of cardiovascular disease, Onset Age: 80 Cerebrovascular accident, Onset Age: 80 Social History Social History Smoking packs per day: 0 Smoking cigarettes per day: 0.0 Years smoked: 0 Smoking pack-years: 0.00 Smoking status: Former smoker Second hand tobacco smoke exposure: Yes Alcohol intake: never Substance use: never Lack of Transportation: No Lack of Food: Never True Current Housing: I Have Housing Concerned About Future Housing: No Difficulty Paying Gas/Electric Bills: No Difficulty Paying for Meds: No Currently Unemployed: No Education: High School Diploma/GED Difficulty w/ Childcare or Family Care: No Living arrangements: with family Additional living arrangements comments: , [place] Gender identity (if verbalized by the patient): Female Spiritual care concerns: No Exam Narrative: APPEARANCE: Well appearing, no pain, no distress, well-nourished. HEAD: normocephalic, atraumatic. EYES: PERRLA/EOMI, conjunctivae clear. NOSE: Normal no drainage EARS:TMS clear with good light reflex. THROAT: Pharynx clear, no exudate. NECK: Supple. No adenopathy, no masses. RESPIRATORY: Airway patent, respirations nonlabored. Clear to auscultation bilaterally, no rales, rhonchi, wheezing. CARDIOVASCULAR: Rapid heart
[2024-02-05 13:55] VITALS: PULSE 152
[2024-02-05] MEDS: SODIUM CHLORIDE 0.9% IV 1,000 ML 250 ML IV CONT (13:55)
[2024-02-05] MEDS: METOPROLOL TARTRATE INJ 5 MG/5 ML VIAL IV PUSH (13:55)
[2024-02-05 14:05] VITALS: BP 91/74; PULSE 116; RESP 16; O2SAT 100
[2024-02-05 14:10] LABS: Basophils Absolute Auto 0.1 K/mm3 (0.0-0.1); Basophils Percent Auto 0.8 % (0.2-1.2); Eosinophils Absolute Auto 0.2 K/mm3 (0-0.3); Eosinophils Percent Auto 2.2 % (0-4.4); Immature Granulocyte Absolute 0.04 K/mm3 (0.00-0.031); Immature Granulocyte Percent A 0.4 % (0-0.5); Lymphocytes Percent Auto 27.5 % (18.3-44.2); Mean Corpuscular HGB Conc 34.1 g/dl (32-36); Mean Corpuscular Hemoglobin 33.3 pg (26-34); Mean Corpuscular Volume 97.4 fl (80-100); Mean Platelet Volume 9.6 fl (7.4-10.4); Monocytes Absolute Auto 0.7 K/mm3 (0.1-0.6); Neutrophils Absolute Auto 5.5 K/mm3 (1.3-6.7); Neutrophils Percent Auto 61.1 % (45.5-73.1); Platelet Count Result 231 k/mm3 (150-375); Red Blood Count 4.21 M/mm3 (4.2-5.4); White Blood Count 9.1 K/mm3 (4.5-10.0)
--- NOTE | 2024-02-05 14:10 | ECG_ITS ---
Test Date: 2024-02-05 14:14:34 Measurements Intervals [place] Rate: 78 P: -55 TN: 109 QRS: 3 QRSD: 90 T: 39 QT: 371 QTc: 423 Interpretive Statements SINUS RHYTHM WITH SHORT TN INTERVAL NORMAL ELECTROCARDIOGRAM Compared to ECG 02/05/2024 13:31:15 SINUS RHYTHM REPLACES ATRIAL FLUTTER Electronically Signed On 02-05-2024 15:17:29 CDT by Maged Bañuelos M.D.
[2024-02-05 14:31] LABS: Alanine Aminotransferase 23 U/L (6-35); Albumin Level 4.8 g/dL (3.5-5.1); Alkaline Phosphatase 75 U/L (38-126); Anion Gap 15 mmol/L (4-12); Aspartate Amino Transferase 30 U/L (14-36); Bilirubin,Total 0.5 mg/dL (0.2-1.3); Blood Urea Nitrogen 28 mg/dL (7-17); Calcium 9.2 mg/dL (8.4-10.2); Carbon Dioxide 23 mmol/L (22-30); Chloride 100 mmol/L (98-107); Estimated CRCL calculation 26 ml/min; Estimated Glomerular Filt Rate 39; Glucose 132 mg/dL (65-110); Potassium 4.3 mmol/L (3.4-5.0); Sodium 138 mmol/L (137-145)
[2024-02-05 14:45] VITALS: PULSE 78; RESP 13; O2SAT 99
[2024-02-05 15:00] VITALS: PULSE 76; RESP 16; O2SAT 97
== END 2024-02-05 15:14 | disposition home or self-care (01) ==
PROVIDERS: Emergency Provider Emergency Medicine; PCP Family Medicine
DX: I48.91 Unspecified atrial fibrillation (principal); I10 Essential (primary) hypertension; E28.2 Polycystic ovarian syndrome; E11.9 Type 2 diabetes mellitus without complications; Z87.442 Personal history of urinary calculi; Z90.49 Acquired absence of other specified parts of digestive tract; Z96.659 Presence of unspecified artificial knee joint; Z79.01 Long term (current) use of anticoagulants; Z79.84 Long term (current) use of oral hypoglycemic drugs
CPT/HCPCS: 36415; 71045; 80053; 85025; 93005; 96361; 96374; 99284; J7030

== ENCOUNTER 2024-07-27 10:25 | Emergency (ER) | payer MEDICARE, SELFPAY ==
[2024-07-27 11:17] VITALS: BP 156/61; PULSE 76; RESP 16; TEMP 37.1; O2SAT 96
[2024-07-27 11:25] LABS: EDINFLUASCREEN Positive (Negative); EDINFLUBSCREEN Negative (Negative)
[2024-07-27 11:33] LABS: EDCOVIDSCREEN Negative (Negative)
--- NOTE | 2024-07-27 12:02 | ED_ITS ---
HPI - URI/Sore Throat General Chief Complaint: Upper Respiratory Infection Stated Complaint: COUGH/WEAKNESS Time Seen by Provider: 07/27/24 10:30 Source: patient Mode of arrival: ambulatory Limitations: no limitations History of Present Illness HPI Narrative: Patient is an 84-year-old female who presents with persistent cough that is keeping her up at night, fatigue and congestion for 4 days. Denies any fever, c hills, nausea, vomiting, diarrhea. Has taken [id number] medication with no relief. Related Data Home Medications ?Medication ?Instructions ?Recorded ?Confirmed ?Last Taken ?Type cannabidiol 100 mg/mL oral solution 25 mg PO DAILY 06/21/20 04/25/24 11/11/23 History multivit with minerals-iron 18 1 tablet PO DAILY 06/21/20 04/25/24 05/20/23 History mg-folic ac 400 mcg-vit K 25 mcg tablet (Adults Multivitamin) cholecalciferol (vitamin D3) 50 50 mcg PO DAILY 05/20/23 04/25/24 11/11/23 History mcg (2,000 unit) capsule cyanocobalamin (vitamin B-12) 5,000 mcg sublingual DAILY 05/20/23 04/25/24 11/11/23 History 5,000 mcg sublingual tablet diphenhydramine 25 2 tablet PO HS PRN Sleep 05/20/23 04/25/24 11/11/23 History mg-acetaminophen 500 mg tablet (Acetaminophen PM) famotidine 10 mg tablet 10 mg PO HS 05/20/23 04/25/24 11/11/23 History rivaroxaban 15 mg tablet (Xarelto) 15 mg PO DAILY 05/20/23 04/25/24 11/11/23 History lisinopril 40 mg tablet 10 mg PO DAILY 01/21/24 04/25/24 Unknown History amlodipine 5 mg tablet 5 mg PO DAILY 04/25/24 04/25/24 Unknown History Allergies Allergy/AdvReac Type Severity Reaction Status Date / Time Penicillins Allergy Mild HIVES Verified 07/27/24 11:24 Review of Systems Review of Systems: All systems reviewed & are unremarkable except as noted in HPI and below Constitutional: Constitutional: Denies body ache(s), Denies chills, Denies fatigue, Denies fever(s), Denies headache(s), Denies malaise and Denies weakness Eyes: Eyes: Denies blurry vision, Denies itchy eyes and Denies loss of vision ENT: Denies otalgia, Denies headache(s), Reports nasal congestion, Denies sinus pain and Denies sore throat Cardiovascular: Cardiovascular: Denies chest pain, Denies irregular heart rhythm and Denies dyspnea Respiratory: Respiratory: Reports cough and Denies dyspnea Gastrointestinal: Gastrointestinal: Denies abdominal pain, Denies diarrhea, Denies nausea and Denies vomiting Musculoskeletal: Musculoskeletal: Denies back pain, Denies myalgias and Denies arthralgias Integumentary/Breasts: Skin/Breast: Denies pruritus and Denies rash Neurologic: Denies headache(s), Denies loss of vision and Denies weakness Psychiatric: Psychiatric: Reports no additional psychiatric complaints Endocrine: Endocrine: Denies fatigue Allergic/Immunologic: Allergic/Immunologic: Denies itchy eyes PMFSH Past Medical History Medical History Essential (primary) hypertension Atrial fibrillation with RVR CARDIOVERSION june, Bradycardia Type 2 diabetes mellitus without complications History of polycystic ovaries Hx of nephrolithotomy with removal of calculi Surgical History Surgical History History of knee replacement Hx of appendectomy Hx of cholecystectomy Family History Family History Mother Diabetes mellitus Family history of mental disorder Depression Family history of dementia Grandparent Diabetes mellitus Acute myocardial infarction Sibling Patient's brother is in good health Father Family history of cardiovascular disease, Onset Age: 80 Cerebrovascular accident, Onset Age: 80 Social History Social History Smoking packs per day: 0 Smoking cigarettes per day: 0.0 Years smoked: 0 Smoking pack-years: 0.00 Smoking status: Former smoker Second hand tobacco smoke exposure: Yes Alcohol intake: never Substance use: never Lack of Transportation: No Lack of Food: Never True Current Housing: I Have Housing Concerned About Future Housing: No Difficulty Paying Gas/Electric Bills: No Difficulty Paying for Meds: No Currently Unemployed: No Education: High School Diploma/GED Difficulty w/ Childcare or Family Care: No Living arrangements: with family Additional living arrangements comments: , [place] Gender identity (if verbalized by the patient): Female Spiritual care concerns: No Comments At time of signature, agree with nursing past medical, surgical, social and family history. There is no relevant family history pertinent to the presenting complaint. Exam Const: General: cooperative, healthy appearing, comfortable, no acute distress and well nourished Nutritional Appearance: well nourished Orientation/consciousness: patient oriented x3 Limitations: no limitations HENMT: Head: normal to inspection, normocephalic and atraumatic Ears: hearing grossly normal bilaterally, external ears normal, TM's normal bilaterally, EAC's normal and no periauricular adenopathy Face/Nose/Sinus: Normal external nose present, Abnormal mucous membranes and turbinates present erythematous bilateral and diffuse, normal facial exam, sinuses nontender and face symmetric Face and sinus: normal facial exam, sinuses nontender and face symmetric Mouth: Yes Normal oral and palatal mucosa present, Yes lip normal, Yes tongue normal, Yes Normal salivary glands and ducts present, Yes oropharynx normal and Yes moist mucous membranes Teeth and gingiva: dentition normal Throat: posterior oropharynx normal, tonsils normal and uvula midline Eyes: General: appearance normal, both eyes and all related structures Alignment and Position: alignment normal and position normal Periorbital: periorbital findings normal Eyelids: eyelids normal Pupils: Equal, round and reactive pupils present Neck: Neck: normal visual inspection, full ROM, no lymphadenopathy and supple Chest: Chest palpation & inspection: normal inspection of the chest and normal palpation of entire chest wall Resp: Effort & Inspection: normal respiratory effort and able to speak in complete sentences Auscultation: clear to auscultation bilaterally, no crackles, no rales, no rhonchi and no wheezes Cardio: Rate: regular rate Rhythm: regular rhythm Heart sounds: S1 normal heart sound present and S2 normal heart sound present GI: Inspection: normal to inspection Skin: General skin exam: normal color and no rashes or lesions noted Neuro: General: patient oriented x3 and moves all extremities Cranial nerves: Yes Equal, round and reactive pupils present Speech: normal speech Gait exam (Neuro): Normal gait present Extrem: General: normal to inspection, full ROM and no edema Psych: Appearance: grossly normal and well kempt Mental Status: mental status grossly normal Speech and movement: Normal speech and movement present Affect: normal affect Attitude: cooperative Thought process: Normal thought process present Course Course Emergency Course: Discharge instructions reviewed with patient, as well as provided in writing per nursing staff. The instructions also include specific and strict return/GO TO THE ER as well as f/u information. All questions have been answered, and the patient deny any further questions with discharge and discharge plan. Portions of this record may have been created with voice recognition software Level of Care: Express Care Visit Vital Signs Vital signs: Vital Signs Temperature 37.1 C 07/27/24 11:17 Pulse Rate 76 07/27/24 11:17 Respiratory Rate 16 07/27/24 11:17 Blood Pressure 156/61 H 07/27/24 11:17 Pulse Oximetry 96 07/27/24 11:17 Temperature 37.1 C 07/27/24 11:17 Pulse Rate 76 07/27/24 11:17 Respiratory Rate 16 07/27/24 11:17 Blood Pressure 156/61 H 07/27/24 11:17 Pulse Oximetry 96 07/27/24 11:17 Oxygen Delivery Room Air 07/27/24 11:20 Reviewed MDM - URI/Sore Throat MDM Narrative Medical decision making narrative: Pt well hydrated appearing, in no respiratory distress, hemodynamically stable. Recommend supportive care. The patient is stable at time of discharge the clinical impression was discussed and the patient was given the opportunity to ask questions, which were addressed as completely as possible given the information available at present. Anticipatory guidance and return to care precautions were discussed and the importance of primary care follow-up was stressed and encouraged. The patient voiced understanding of the plan, indications to return, and the need for follow-up. Differential diagnosis considered: Ortiz virus, strep pharyngitis, allergic rhinitis, upper respiratory tract infection, sinusitis, rhinosinusitis, nasopharyngitis. viral pharyngitis, otitis media, otitis externa, otitis effusi on, foreign body, cerumen impaction, viral syndrome, and influenza.? Exam findings show no acute concerns or changes; patient is non-toxic appearing and is in no distress.? Patient is appropriate for outpatient treatment and follow- up.? Medical Records Attestation: I reviewed the patient's medical records. Lab Data Attestation: I reviewed the patient's lab results. Labs: Lab Results 07/27/24 07/27/24 Range/Units 11:23 11:29 POC Influenza A Ag Positive (Negative) POC Influenza B Ag Negative (Negative) POC SARS CoV-2 Ag Negative (Negative) Discharge Plan Discharge Clinical Impression: Influenza Patient Disposition: Home, Self-Care Condition: Stable Instructions: Influenza (ED) Additional Instructions: Were positive for influenza A. Your Covid is negative Your symptoms are due to a viral illness, which is not treated with antibiotics. Viral symptoms can be present for up to a few weeks. -For fever/pain, you may take: Tylenol 650-1000mg by mouth every 4-6 hours. Do not exceed 4000mg in 24 hours. Advil (Ibuprofen) 600 mg by mouth every 6 hours. Do not exceed 2400mg in 24 hours. 8 AM: Tylenol 11 AM: Ibuprofen 2 PM: Tylenol 5 PM: Ibuprofen 8 PM: Tylenol 11 PM: Ibuprofen 2 AM: Tylenol 5 AM: Ibuprofen -Antihistamine medication such as Benadryl/Zyrtec at night and Claritin/Nida during the day can help improve symptoms. -Use Flonase twice a day for 5 days then daily to help reduce the inflammation and dry up your sinuses. -You can also use Sudafed behind the pharmacy counter(12 or 24 hour). Be sure to drink plenty of water with these medications at least 8 ounces with every dose and it is important to drink 8 to 10 glasses of water per day. Water is a natural decongestant -Eat and drink things that are easy to swallow, like tea or soup, or popsicles. -Oral rinses such as: Salt water gargles and/or may use topical anesthetic (eg. Chloraseptic spray) or lozenges to relieve dryness or throat pain). -Frequent hand washing or hand social insurance specialist is one of the best ways to prevent spread of infection. -Using a vaporizer or humidifier at night will also help thin secretions and help with coughing up phlegm. -Follow up with primary care provider in 3-5 days if condition is not improving - For new or worsening symptoms go directly to the nearest ER Your blood pressure was elevated above 120/80 today at Urgent Care. This puts you above the threshold for follow up visit with a primary care provider. High blood pressure does not usually cause any symptoms, however it may lead to kidney failure, stroke, heart disease just to name a few if untreated . Many people are anxious when seeing a provider or nurse. As a result, you are not diagnosed with hypertension at this time unless your blood pressure is persistently high at two office visits at least one week apart. Some things that can help lower blood pressure are lifestyle modifications, such as light ex ercise, decreased salt in diet, and weight loss. It is important to follow up with a PCP about this within 1 week. Patient Language: Stateless Prescriptions: New (DME) Aerochamber MV Spacer See Rx Instructions .Route Qty: 1 0RF Rx Instructions: As directed benzonatate 100 mg capsule 100 mg PO BID PRN (Reason: cough) Qty: 14 0RF albuterol sulfate 90 mcg/actuation HFA aerosol inhaler 2 puff inhalation QID PRN (Reason: shortness of breath or wheezing) Qty: 6.7 0RF No Action lisinopril 40 mg tablet 10 mg PO DAILY amlodipine 5 mg tablet 5 mg PO DAILY Adults Multivitamin 18 mg iron-400 mcg-25 mcg Tablet 1 tablet PO DAILY cannabidiol 100 mg/mL Solution 25 mg PO DAILY Rx Instructions: takes 1/2 dropper daily by mouth Xarelto 15 mg tablet 15 mg PO DAILY Rx Instructions: daily at 1730 famotidine 10 mg Tablet 10 mg PO HS cholecalciferol (vitamin D3) 50 mcg (2,000 unit) Capsule 50 mcg PO DAILY cyanocobalamin (vitamin B-12) 5,000 mcg Tablet, Sublingual 5,000 mcg SUBLINGUAL DAILY Acetaminophen PM 25-500 mg Tablet 2 tablet PO HS PRN (Reason: Sleep) pitavastatin calcium 4 mg tablet 4 mg PO DAILY Qty: 90 3RF icosapent ethyl [Vascepa] 1 gram capsule 2 g PO BID Qty: 90 0RF metformin 500 mg tablet See Rx Instructions .ROUTE .COMPLEX Qty: 180 1RF Dose Instruction: TAKE 1 TABLET BY MOUTH TWICE DAILY Rx Instructions: TAKE 1 TABLET BY MOUTH TWICE DAILY diclofenac sodium 75 mg tablet,delayed release (DR/EC) 75 mg PO BID Qty: 180 1RF indapamide 2.5 mg tablet 2.5 mg PO DAILY Qty: 90 1RF Follow-up/Referrals: Chantal Hoskins, [employer] [Primary Care Provider] - 3 Days Time of Disposition: 12:07
== END 2024-07-27 12:10 | disposition home or self-care (01) ==
PROVIDERS: Emergency Provider Nurse Practitioner Family; PCP Clinical Nurse Specialist
DX: J11.1 Influenza due to unidentified influenza virus with other respiratory manifestations (principal); E11.9 Type 2 diabetes mellitus without complications; I10 Essential (primary) hypertension; I48.91 Unspecified atrial fibrillation; Z20.822 Contact with and (suspected) exposure to COVID-19; Z87.891 Personal history of nicotine dependence
CPT/HCPCS: 87426; 87804; 99213; G0463

== ENCOUNTER 2024-11-09 14:46 | Outpatient (CLI) | payer MEDICARE, SELFPAY ==
--- NOTE | ~2024-11-09 | MM_ITS ---
EXAMINATION: MM screening luma BI w skylar HISTORY: Screening TECHNIQUE: Craniocaudal and mediolateral oblique 3-D tomosynthesis images were obtained and synthetic 2-D images were generated. CAD analysis was submitted and interpreted. COMPARISON: Comparison to multiple prior studies sequentially, with oldest reviewed study dated 11/05. BREAST PARENCHYMAL COMPOSITION: Not dense: There are scattered areas of fibroglandular density. FINDINGS: There is no evidence of suspicious mass, calcification, or architectural distortion to sugg est malignancy in either breast. There has been no suspicious interval change. IMPRESSION: 1. No mammographic evidence of malignancy. 2. Recommend routine screening mammography in one year. BI-RADS Category 1: Negative Reviewed, dictated and finalized at location B.
--- OUTSIDE RECORDS SUMMARY | 2024-11-09 14:58 | XMS_ITS | Clinical Summary ---
Author Organization [facility] [place] [address] Address [address] [place] [address] Care Team Providers Care Chef De Cuisine Name Role Phone Chantal Hoskins NP Primary Care Provider Allergies Active Allergy Reactions Criticality Noted Date Comments Penicillin G Unknown 11/07/2021 Patient may still be a candidate for cephalosporins - please investigate & update findings here Medications metFORMIN (GLUCOPHAGE) 500 mg tablet 2 (two) times a day Take 2 tablets in the morning and 1 tablet in the evening. 0 Active indapamide (LOZOL) 2.5 mg tablet Take 1 tablet (2.5 mg total) by mouth daily [address] (VOLTAREN) 75 mg EC tablet Take 1 tablet (75 mg total) by mouth 2 (two) times a day 0 Active multivitamin capsule Take 1 capsule by mouth daily Active magnesium gluconate 200 mg tabletIndicatio ns:hypomagnesem ia Take 2.5 tablets (500 mg total) by mouth daily Active diphenhydrAMINE -acetaminophen (TYLENOL PM) 25-500 mg tablet Take 1 tablet by mouth Active UNABLE TO FIND Med Name: CBD oil Active cholecalciferol (VITAMIN D-3) 2000 unit capsule 1 capsule (2,000 Units total) Active cyanocobalamin, vitamin B-12, 5,000 mcg tablet, sublingual Place under the tongue Active famotidine (PEPCID) 10 mg tablet Take 1 tablet (10 mg total) by mouth 2 (two) times a day Active lisinopriL (PRINIVIL,ZESTR IL) 40 mg tablet Take 1 tablet (40 mg total) by mouth daily Active amLODIPine (NORVASC) 5 mg tabletIndicatio ns:Hypertension associated with diabetes (HCC) Take 1 tablet (5 mg total) by mouth daily 30 tablet 11 4 01/15/20 25 Active Additional Information Patient not taking.Reported on 08/10/2024 Xarelto 15 mg tabletIndicatio ns:PAF (paroxysmal atrial fibrillation) (HCC) TAKE 1 TABLET(15 MG) BY MOUTH DAILY 90 tablet 1 4 Active Vascepa 1 gram capsule TAKE 2 CAPSULES(2 GRAMS) BY MOUTH TWICE DAILY 360 capsule 1 5 Active pitavastatin calcium (LIVALO) 4 mg tablet Take 1 tablet (4 mg total) by mouth daily 30 tablet 11 5 Active Active Problems Problem Noted Date Diagnosed Date Presence of leadless cardiac pacemaker 5 Overview (08/10/2024): Medtronic Micra AV2 LL PPM - 03/23/24 - Afib, s/p AVJ - Timmy. [facility]Janneth[facility]. Cardiac arrhythmia 02/11/2024 ARMANDO (dyspnea on exertion) 06/05/2022 History of cardioversion 07/09/2020 Chronic anticoagulation 07/09/2020 Assessment & Plan (02/12/2024 5:24 PM CDT): The patient has a [id number] score of 4 (annualized risk of stroke 4%). I have therefore recommended continued anticoagulation thromboprophylaxis. PAF (paroxysmal atrial fibrillation) 06/20/2020 Assessment & Plan (02/12/2024 5:23 PM CDT): Antiarrhythmic-drug refractory recurrent persistent atrial fibrillation. She is highly symptomatic, and it appears that rate control will not be a realistic option. We discussed options for management. Catheter ablation (i.e., pulmonary vein isolation) can be considered, though I am hesitant given the patient's advanced age. Alternatively, I offered her pacemaker/AV node ablation. Because of her normal cardiac function and relatively intact sinus node, she may benefit most from leadless VDD pacing. If she wishes to proceed, my office will make the appropriate arrangements. PSVT (paroxysmal supraventricular tachycardia) 0 03/20/2020 Premature atrial contractions 03/20/2020 History of rheumatic fever 03/20/2020 Hyperlipidemia associated with type 2 diabetes m lenny 03/20/2020 Hypertension associated with diabetes 03/20/2020 Encounters Date Type Department Care Team Description 09/23/2024 Telephone [facility] Card[facility] [address] [place] [address] Michele Lagunas MD from Last 3 Months Surgical History Surgery Date Site/Laterality Comments CARDIOVERSION 06/25/2020 Medical History Medical History Date Comments Hypertension Hyperlipidemia Diabetes mellitus (HCC) Family History Medical History Relation Name Comments Stroke Father Stroke Mother Relation Name Status Comments Brother Alive Father Mother Social History Tobacco Use Types Packs/Day Years Used Date Smoking Tobacco: Former Cigarettes 0.5 5 Smokeless Tobacco: Never Tobacco Cessation:Counseling Given: Not Answered Alcohol Use Standard Drinks/Week Comments Never 0 (1 standard drink = 0.6 oz pur e alcohol) AUDIT-C Answer Date Recorded Q1: How often do you have a drink containing alcohol? Never 03/23/2024 Q2: How many drinks containi ng alcohol do you have on a typical day when you are drinking? Patient does not drink Q3: How often do you have si x or more drinks on one occasion? Never 03/23/2024 Personal Safety Answer Date Recorded Have you ever been in or are you currently in a harmful physical or emotional relationship or is someone making you feel afraid or unsafe? Denies 03/23/2024 Comments Unknown Sex and Gender Information Value Date Recorded Sex Assigned at Not on file Legal Sex Female 3:00 PM 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 Gender Identity Not on file Sexual Orientation Not on file Obstetrics History Last Filed Vital Signs Vital Sign Reading Time Taken Comments Blood Pressure 120/56 08/10/2024 3:06 PM 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 Pulse 72 08/10/2024 3:06 PM 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 Temperature 36.3 C (97.3 F) 04/06/2020 11:07 AM CDT Respiratory Rate 19 03/23/2024 10:45 AM CDT Oxygen Saturation 98% 08/10/2024 3:06 PM 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 Inhaled Oxygen Concentration - - Weight 78.5 kg (173 lb) 08/10/2024 3:06 PM 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 Height 154.9 cm (5' 1 ) 08/10/2024 3:06 PM 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 Body Mass Index 32.69 08/10/2024 3:06 PM 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 Plan of Treatment Health Maintenance Due Date Last Done Comments Albumin Creatinine Ratio, Urine 1938 Depression Screening 1938 Hemoglobin A1C 1938 Dilated Eye Exam 1938 Foot Exam 1938 DTaP/Tdap/Td Vaccine (1 - Tdap) 1949 Hepatitis B Screening 1956 Pneumococcal vaccine 65+ (1 of 2 - PCV) 1957 Zoster Vaccine (1 of 2) 1988 Well Visit 65+ 2003 Fall Risk Assessment 03/20/2021 03/20/2020 Lipid Panel 03/20/2021 03/20/2020 Covid-19 Vaccine (4 - 2023-2 5 season) 2024 03/19/2021, 08/18/2020, 07/20/2020 eGFR 03/23/2025 03/23/2024, 06/20/2020 Influenza Vaccine Completed 02/25/2024, , 03/25/2019, Additional history exists Medical Devices Implanted Type Area Die Cut Operator Device Identifier Shelf Expiration Date Model / Serial / Lot Medtronic Inc Micra 2 Av Synchronous Leadless Ventricular Pacemaker [id number] - [id number] - [id number] Implanted:Qty: 1 on 03/23/2024 by Hiro Warner MD at [facility] Pacemaker Medtronic Inc 07/05/2025 [id number] / [id number] / [employer] System Closure Repair Femoral Artery Suture Mediated Perclose Prostyle 26916-91 - [id number] - [id number] Implanted:Qty: 1 on 03/23/2024 by Hiro Warner MD at [facility] [employer] 12/19/2025 [id number] -[id number] / [id number] / [id number] [employer] V[employer] System Closure Repair Femoral Artery Suture Mediated Perclose Prostyle 26632-90 - [id number] - [id number] Implanted:Qty: 1 on 03/23/2024 by Hiro Warner MD at [facility] [employer] 12/19/2025 [id number] -[id number] / [id number] / [id number] Procedures Procedure Name Priority Date/Time Associated Diagnosis Comments EGFR STAT 03/23/2024 9:33 AM CDT POCT LIPID PANEL Routine 03/20/2020 9:19 AM CDT Hyperlipidemia associated with type 2 diabetes mellitus (HCC) from Last 3 Months or Most Recently Relevant to Health Maintenance Results * (ABNORMAL) eGFR (03/23/2024 9:33 AM CDT) eGFR 35(L) >=60 mL/min/1. 73 m2 Comment: Interpretive Data Reference Interval Normal >/= 90 mL/min/1.73m2 Mildly decreased* 60 - 89 mL/min/1.73m2 Mildly to moderately decreased 45 - 59 mL/min/1.73m2 Moderately to severely decreased 30 - 44 mL/min/1.73m2 Severely decreased 15 - 29 mL/min/1.73m2 Kidney Failure < 15 mL/min/1.73m2 *Relative to young adult level Estimated glomerular filtration rate is determined by the 2020 CKD-EPI equation recommended by the National Kidney Foundation (A Unifying Approach to GFR Estimation: Recommendations of the NKF-ASK Task Force on Reassessing the Inclusion of Race in Diagnosing Kidney Disease, JASN 2020). The CKD-EPI equation should not be used for patients with unstable renal function and has not been validated in children and those over 70. Current interpretive data was last reviewed 2021. Blood 03/23/2024 9:3 3 AM CDT 03/23/2024 9:45 AM CDT us Hiro Warner MD LAB BLOOD ORDERABLES Fi nal Result [facility] [address] [place] [address] * (ABNORMAL) POCT lipid panel (03/20/2020 9:19 AM CDT) Cholesterol, POC 149 mg/dL HDL, POC 26 mg/dL Triglycerides, POC 267 mg/dL LDL Cholesterol POC 69 mg/dL Chol/HDL Ratio, POC 5.6 Non-HDL Cholesterol, POC 123 mg/dL Cholesterol Total, POC 149 mg/dL Capillary blood 03/20/2020 9 :19 AM CDT Michele Lagunas MD POINT OF CARE TEST ORDERA BLES Final Result from Last 3 Months or Most Recently Relevant to Health Maintenance Insurance MEDICARE MEDICARE [employer] SENIOR SUPPLEMENT Care Teams Chef De Cuisine Relationship Specialty Start Date End Date Chantal Hoskins NP [address] [place] [address] [address] PCP - General Cardiovascular Disease 08/10/24
--- OUTSIDE RECORDS SUMMARY | 2024-11-09 14:58 | XMS_ITS | Referral Summary ---
Author Organization [facility] [address] Address [address] [place] [address] Care Team Providers Care Beam Builder Name Role Phone Chantal Hoskins NP Primary Care Provider Encounters Date Type Department Care Team Description 09/23/2024 Telephone [facility] Cardiology [address] [place] [address] Michele Lagunas MD from Last 3 Months Allergies Active Allergy Reactions Criticality Noted Date [...] 03/23/24 - Afib, s/p AVJ - Timmy. Kim. [facility] remote. Cardiac arrhythmia 02/11/2024 ARMANDO (dyspnea on exertion) 06/05/2022 History of cardioversion 07/09/2020 Chronic anticoagulation 07/09/2020 Assessment & Plan (02/12/2024 5:24 PM CDT): The patient has a [id number] score of 4 (annualized risk of stroke [...] lenny 03/20/2020 Hypertension associated with diabetes 03/20/2020 Social History Tobacco Use Types Packs/Day Years [...] on file Legal Sex Female 3:00 PM [employer] Gender Identity Not on file Sexual Orientation Not on file Last Filed Vital Signs Vital Sign Reading Time Taken Comments Blood Pressure 120/56 08/10/2024 3:06 PM [employer] Pulse 72 08/10/2024 3:06 PM [employer] Temperature 36.3 C (97.3 F) 04/06/2020 11:07 AM CDT Respiratory Rate 19 03/23/2024 10:45 AM CDT Oxygen Saturation 98% 08/10/2024 3:06 PM [employer] Inhaled Oxygen Concentration - - Weight 78.5 kg (173 lb) 08/10/2024 3:06 PM [employer] Height 154.9 cm (5' 1 ) 08/10/2024 3:06 PM [employer] Body Mass Index 32.69 08/10/2024 3:06 PM [employer] Plan of Treatment Not on file Medical Devices Implanted Type Area Traffic Circuit Engineer Device Identifier Shelf Expiration Date Model / Serial / Lot [employer] Micra 2 Av Synchronous Leadless Ventricular Pacemaker [id number] - [id number] - [id number] Implanted:Qty: 1 on 03/23/2024 by Hiro Warner MD at [facility] Pacemaker [employer] 07/05/2025 [id number] / [id number] / [employer] V[employer] System Closure Repair Femoral Artery Suture Mediated Perclose Prostyle 15183-76 - [id number] - [id number] Implanted:Qty: 1 on 03/23/2024 by Hiro Warner MD at [facility] [employer] 12/19/2025 [id number] -[id number] / [id number] / [id number] Gu[employer] System Closure Repair Femoral Artery Suture Mediated Perclose Prostyle 74114-51 - [id number] - [id number] Implanted:Qty: 1 on 03/23/2024 by Hiro Warner MD at [facility] [employer] 12/19/2025 99048 -03 / [id number] / [id number] Procedures Procedure Name Priority Date/Time Associated Diagnosis [...] data was last reviewed 2021. Blood 03/23/2024 9:33 AM CDT 03/23/2024 9:45 AM CDT us Hiro Warner MD LAB BLOOD ORDERABLES Fi nal Result [facility] [address] Department [place] [address] * (ABNORMAL) POCT lipid panel (03/20/2020 9:19 AM CDT) Cholesterol, POC 149 mg/dL HDL, POC 26 mg/dL Triglycerides, POC 267 mg/dL LDL Cholesterol POC 69 mg/dL Chol/HDL Ratio, POC 5.6 Non-HDL Cholesterol, POC 123 mg/dL Cholesterol Total, POC 149 mg/dL Capillary blood 03/20/2020 9 :19 AM CDT us Michele Lagunas MD POINT OF CARE TEST ORDERA BLES Final Result from Last 3 Months or Most Recently Relevant to Health Maintenance Insurance MEDICARE MEDICARE [employer] SENIOR SUPPLEMENT Care Teams Beam Builder Relationship Specialty Start Date End Date Chantal Hoskins NP [facility] [place] [address] PCP - General Cardiovascular Disease 08/10/24
--- OUTSIDE RECORDS SUMMARY | 2024-11-09 14:58 | XMS_ITS | Clinical Summary ---
Author Organization [facility] Address [address] [place] [address] Phone Care Team Providers Care Strategic Accounts Manager Name Role Phone Yaya Perez MD Unavailable [phone] Michele Lagunas MD Unavailable [phone] Keenan Llamas DO Primary Care Provider [phone] Allergies Active Allergy Reactions Criticality Noted Date Comments Penicillin G Unknown 11/07/2021 Medications Magnesium 200 MG Tablet Take by mouth. Active metFORMIN (GLUCOPHAGE) 500 MG Tablet Take 500 mg by mouth 2 times daily (with meals). Active atenolol (TENORMIN) 50 MG Tablet Take 50 mg by mouth daily. Active diclofenac (VOLTAREN) 75 MG Tablet Delayed Response Take 75 mg by mouth 3 times daily. Active rivaroxaban (XARELTO) 20 MG Tablet Take 20 mg by mouth daily (with dinner). Take with food. Active Pitavastatin Calcium 4 MG Tablet Take by mouth. Active lisinopril (PRINIVIL, ZESTRIL) 40 MG Tablet Take 40 mg by mouth daily. Active Icosapent Ethyl 1 g Capsule Take by mouth. Active Cholecalciferol (Vitamin D) 2000 UNIT Tablet Take by mouth. Active indapamide (LOZOL) 2.5 MG Tablet Take 2.5 mg by mouth daily. 11/11/2021 Active other by Other route. Cbd oil Active Ascorbic Acid (Vitamin C) 1000 MG Tablet Take by mouth. Active Cyanocobalamin (B-12 PO) Take by mouth. Active diphenhydrAMINE- APAP, sleep, (TYLENOL PM EXTRA STRENGTH PO) Take by mouth. Active amLODIPine (NORVASC) 5 MG Tablet Take 5 mg by mouth daily. 01/15/2024 Active Active Problems No known active problems Immunizations Immunization Administration Dates Next Due COVID-19, MRNA, LNP-S, BIVAL ENT , PFIZER, 30 MCG/0.3 ML (12+ Y/O) 03/11/2022 Covid-19, Mrna, Lnp-s, Pf, T ris-sucrose, 30 Mcg/0.3 Ml (Pfizer) 03/13/2023 Influenza, High-dose, Quadrivalent 03/13/2023, Influenza, Quadrivalent, Adjuvanted 03/11/2022 Influenza, Recombinant, Quadrivalent,injectable, Pf 03/25/2019 Influenza, high-dose, trivalent, PF 02/25/2024,1 RSV, Recombinant, Protein Reynoso bunit Rsvpref, Adjuvant Recon (Arexvy) 03/13/2023 Family History Medical History Relation Name Comments Depression Mother Diabetes Mother Relation Name Status Comments Mother Social History Tobacco Use Types Packs/Day Years Used Date Smoking Tobacco: Never Smokeless Tobacco: Never Tobacco Cessation:Counseling Given: Not Answered Alcohol Use Standard Drinks/Week Comments Not Currently 0 (1 standard drink = 0.6 oz pur e alcohol) Comments Unknown Sex and Gender Information Value Date Recorded Sex Assigned at Not on file Legal Sex Female 11:52 PM CDT Gender Identity Not on file Sexual Orientation Not on file Last Filed Vital Signs Vital Sign Reading Time Taken Comments Blood Pressure 132/72 05/05/2024 10:34 AM ACTIVITIES CONCIERGE Pulse 74 05/05/2024 10:34 AM ACTIVITIES CONCIERGE Temperature 36.6 C (97.9 F) 05/05/2024 10:34 AM ACTIVITIES CONCIERGE Respiratory Rate 16 05/05/2024 10:3 4 AM ACTIVITIES CONCIERGE Oxygen Saturation 99% 05/05/2024 10: 34 AM ACTIVITIES CONCIERGE Inhaled Oxygen Concentration - - Weight 83.4 kg (183 lb 12.8 oz) 024 10:34 AM ACTIVITIES CONCIERGE Height 154.9 cm (5' 1 ) 05/05/2024 10:3 4 AM ACTIVITIES CONCIERGE Body Mass Index 34.73 05/05/2024 10:34 AM ACTIVITIES CONCIERGE Plan of Treatment Upcoming Encounters Date Type Department Care Team (Late st Contact Info) Description 05/04/2025 10:30 AM ACTIVITIES CONCIERGE Office Visit [facility] [address] [place] [id number] Yaya Perez MD [address] [place] [phone] Health Maintenance Due Date Last Done Comments DEXA Bone Density 1940 Hepatitis C Virus (HCV) Screening 1940 TdaP Immunization 1940 Pneumococcal Immunization (50+ years) (1 of 1 - PCV) 1988 Zoster Immunization (1 of 2) 1988 SARS-COV-2 Immunization ( season) 2024 02/25/2024, 10/19/2023, 03/13/2023, Additional history exists Respiratory Syncytial Virus (RSV) Immunization (Adult) Completed 03/13/2023 Influenza Immunization Completed , 03/13/2023, 03/11/2022, Additional history exists Hepatitis B Immunization Aged Out No longer eligible based on patient's age to complete this topic Meningococcal Immunization (ACWY) Aged Out No longer eligible based on patient's age to complete this topic Rotavirus Immunization Aged Out No lo nger eligible based on patient's age to complete this topic Insurance MEDICARE [employer] [place] [address] Care Teams Strategic Accounts Manager Relationship Specialty Start Date End Date Keenan Llamas DO [address] [place] [address] PCP - General Family Medicine 01/29/22 Yaya Perez MD [address] [place] [address] Consulting Physician Neurology 11/06/21 Michele Lagunas MD [address] [place] [address] Cardiovascular Disease - Cardiology 11/28/21
== END 2024-11-09 14:47 | disposition home or self-care (01) ==
LOC: CHSIMG 14:53
PROVIDERS: PCP Clinical Nurse Specialist; Visit Provider Clinical Nurse Specialist
DX: Z12.31 Encounter for screening mammogram for malignant neoplasm of breast (principal)
CPT/HCPCS: 77063; 77067

== ENCOUNTER 2025-01-04 07:10 | Outpatient (RCR) | payer MEDICARE, SELFPAY ==
[2024-11-09 11:55] VITALS: BMI 29.0
== END 2025-01-23 10:00 | disposition home or self-care (01) ==
LOC: ANHWOC 07:10
PROVIDERS: PCP Clinical Nurse Specialist; Visit Provider Clinical Nurse Specialist
DX: S31.819D Unspecified open wound of right buttock, subsequent encounter (principal)
CPT/HCPCS: 99212; 99213; 99214; G0463